=== PATIENT | female | born 1960 | race Caucasian/White ===

== ENCOUNTER → 2017-05-29 | Outpatient (REF) ==
--- NOTE | 2017-05-29 13:16 | REP ---
PARTIAL LUMBAR SPINE, THREE VIEWS: HISTORY: Degenerative disc disease. There is no acute fracture or subluxation. The L4-5 intervertebral disc is decreased in height consistent with disc degeneration. Osteophytes are present on L3-5. IMPRESSION: Degenerative change as described above. Signed by Jay Snow MD 05/29/2017 02:30 P
--- NOTE | 2017-05-29 13:24 | REP ---
RIGHT HIP: Two views. HISTORY: Degenerative disc disease FINDINGS: AP and frog-leg views of the right hip demonstrate smooth rounded femoral head and intact hip joint space. Periarticular soft tissues are unremarkable. Mild inferior acetabular spurring is seen. IMPRESSION: Mild inferior acetabular spurring consistent with osteoarthritis. Otherwise negative right hip views. Signed by Ori Curry MD 05/29/2017 02:56 P
== END ==
LOC: M SMT 11:46
PROVIDERS: ATTEND Internal Medicine
DX: Z02.71 Encounter for disability determination (principal)

== ENCOUNTER → 2024-01-16 | Outpatient (REF) | LOC: M PLAIMG 11:48 | PROVIDERS: ATTEND Internal Medicine | DX: M51.36 Other intervertebral disc degeneration, lumbar region (principal); M17.11 Unilateral primary osteoarthritis, right knee ==